=== PATIENT | male | born 2000 | race Two or more races ===

== ENCOUNTER 2024-06-03 12:45 | Emergency (ER) | payer BC, OTHER ==
[~2024-06-03] VITALS: Ht 182.9 cm; Wt 155.0 kg
[2024-06-03 14:16] LABS: Basophils # (auto) 0 10 ^3/uL (0-0.2); Basophils % (auto) 0.1 % (0.0-2.0); Chloride 104 mmol/L (98-107); Eosinophils # (auto) 0 10 ^3/uL (0-0.8); Eosinophils % (auto) 0.2 % (0.0-7.0); Hematocrit 50.2 % (41.0-53.0); Hemoglobin 17.3 g/dL (13.5-17.5); Lymphocytes # (auto) 2.3 10 ^3/uL (0.4-5.4); Lymphocytes % (auto) 20.2 % (10.0-50.0); Mean Corpuscular Hemoglobin 30.4 pg (28.0-32.0); Mean Corpuscular Hgb Conc. 34.5 g/dL (32.0-36.0); Mean Corpuscular Volume 88.1 fL (80.0-100.0); Monocytes % (auto) 8.6 % (0.0-12.0); Neutrophils # (auto) 8.2 10 ^3/uL (1.6-8.6); Neutrophils % (auto) 70.9 % (37.0-80.0); Nucleated Red Blood Cells % 0.1 %; Potassium 3.8 mmol/L (3.5-5.1); Red Blood Cells 5.69 10^6/uL (4.5-5.90); Red Cell Distribution Width 13.2 % (11.8-14.3); Sodium 140 mmol/L (136-145); White Blood Cell 11.6 10^3/uL (4.4-10.8)
[2024-06-03 14:17] LABS: Anion Gap 7 (5-15); Calcium 10.2 mg/dL (8.5-10.1); Carbon Dioxide 29 mmol/L (20-30)
[2024-06-03 14:22] LABS: BUN/Creatinine Ratio 7.5 (10.0-20.0); Blood Urea Nitrogen 6 mg/dL (9-23); Glucose 95 mg/dL (74-106)
[2024-06-03 14:56] LABS: Partial Thromboplastin Time 29.6 SEC (24.5-34.5); Prothrombin Time 10.6 sec (9.3-11.8)
[2024-06-03 15:14] LABS: Urine Bacteria None Seen /hpf (None Seen)
[2024-06-03 15:43] LABS: Urine Blood Negative /uL (Negative); Urine Clarity Clear (Clear); Urine Color Light-Yellow (Yellow); Urine Mucus FEW (None Seen); Urine Protein, UAD TRACE (Negative); Urine Specific Gravity 1.021 (1.001-1.035); Urine Urobilinogen Normal (Negative); Urine WBC <1 /hpf (0 - 3); Urine pH 6.5 (5.0-9.0)
[2024-06-03 16:00] VITALS: BP 131/79; PULSE 15; RESP 99; TEMP 97.6; O2SAT 99
== END 2024-06-03 16:20 | disposition home or self-care (01) ==
LOC: ER 12:45
DX: R10.31 Right lower quadrant pain (principal); F12.90 Cannabis use, unspecified, uncomplicated; F10.90 Alcohol use, unspecified, uncomplicated
CPT/HCPCS: 36415; 74176; 80048; 81001; 85025; 85610; 85730